=== PATIENT | male | born 1955 | race Caucasian/White ===

== ENCOUNTER 2017-11-09 10:53 | Emergency (ER) | payer OTHER ==
--- NOTE | 2017-11-09 11:25 | UC ---
Back Pain HPI - HPI Summary HPI Summary: This patient is a 62 year old M presenting to [facility] [place] accompanied by his s/p fall that occurred since 11-06-17. Pt was running when he fell injuring his right scapula. The patient rates the pain 8/10 in severity. Patient reports nausea, constipation, and right rib pain. Patient denies ABD pain, trouble eating/ drinking, neck pain, shoulder pain, urinary sx, bowel sx, and SOB. Pt is able to ambulate without pain. - History of Current Complaint Chief Complaint: UCBackPain Stated Complaint: BACK INJURY Time Seen by Provider: 11/09/17 11:12 Hx Obtained From: Patient Onset/Duration: Lasting Days, Still Present Timing: Constant Severity Initially: Moderate Severity Currently: Severe Pain Intensity: 8 Pain Scale Used: 0-10 Numeric Back Pain: Is Diffuse Aggravating Factor(s): Cough Associated Signs And Symptoms: Positive: Negative - ABD pain, trouble eating/ drinking, neck pain, shoulder pain, urinary sx, bowel sx, and SOB., Other - nausea, constipation, and right rib pain - Allergies/Home Medications Allergies/Adverse Reactions: Allergies Allergy/AdvReac Type Severity Reaction Status Date / Time No Known Allergies Allergy Verified 11/09/17 11:09 Home Medications: Home Medications Tamsulosin CAP* [Flomax CAP*] 0.4 mg PO DAILY 11/09/17 [History Confirmed ] PMH/Surg Hx/FS Hx/Imm Hx Cardiovascular History: Other Other Cardiovascular History: HLD GI/ History: Kidney Stones - Surgical History Surgical History: Yes Surgery Procedure, Year, and Place: bladder - Family History Known Family History: Positive: Cardiac Disease Negative: Respiratory Disease, Seizure Disorder - Social History Lives: With Family Alcohol Use: Occasionally Substance Use Type: None Smoking Status (MU): Never Smoked Tobacco Review of Systems Gastrointestinal: Nausea, Other - constipation Musculoskeletal: Other: - back pain All Other Systems Reviewed And Are Negative: Yes Physical Exam - Summary Physical Exam Summary: General: well-appearing, no pain distress Skin: warm, color reflects adequate perfusion, dry Head: normal Eyes: EOMI, LISBET ENT: normal Neck: supple, nontender Respiratory: CTA, breath sounds present Cardiovascular: RRR Abdomen: soft, nontender Bowel: present Musculoskeletal: TTP mid and lower thoracic spin. There is also tenderness in the right thoracic chest, right rib, and right scapula. Good ROM in bilateral UE s although the right is mildly limited secondary to pain. No flank pain, no ecchymosis Neurological: sensory/motor intact, A&O x3 Psychological: affect/mood appropriate Triage Information Reviewed: Yes Vital Signs: Initial Vital Signs Temp 98 F 11/09/17 11:03 Pulse 62 11/09/17 11:03 Resp 17 11/09/17 11:03 BP 105/60 11/09/17 11:03 Pulse Ox 100 11/09/17 11:03 Vital Signs Reviewed: Yes Diagnostics - Radiology CXR/Rib Xray Radiology Interpretation Completed By: Radiologist - There is suggestion of a fracture of the right ninth rib. Dr. Cortez has reviewed this report. Scapula Xray Radiology Interpretation Completed By: Radiologist - Unremarkable scapula. Dr. Cortez has reviewed this report. T spine Xray Radiology Interpretation Completed By: Radiologist - Osteopenia without fracture. Dr. Cortez has reviewed this report. Back Pain Course/Dx - Course Course Of Treatment: F/U PMD; RECHECK SOONER IF WORSE. - Differential Dx/Diagnosis Provider Diagnoses: RIGHT 9TH RIB FRACTURE Discharge - Sign-Out/Discharge Documenting (check all that apply): Patient Departure - Discharge Plan Condition: Stable Disposition: HOME Prescriptions: Cyclobenzaprine TAB* [Flexeril 10 MG TAB*] 10 mg PO TID PRN #20 tab PRN Reason: Pain Diclofenac Sodium 75 mg PO BID PRN #20 tablet. PRViktoriya Reason: Pain Patient Education Materials: Rib Fracture (ED) Referrals: [facility] [Outside] Additional Instructions: FOLLOW UP WITH YOUR DOCTOR. GET RECHECKED FOR ANY WORSENING OF YOUR CONDITION; PAIN, SHORTNESS OF BREATH, FEVER, YOU FEEL ILL OR QUESTIONS OR CONCERNS. - Billing Disposition and Condition Condition: STABLE Disposition: Home
--- NOTE | 2017-11-09 12:00 | RAD ---
Indication: Right shoulder pain. 2 views of the right scapula demonstrates no fracture of the scapula. Coracoid process is unremarkable. IMPRESSION: Unremarkable scapula.
--- NOTE | 2017-11-09 12:02 | RAD ---
Indication: Right rib injury. 3 views of the right ribs are reviewed. There is suggestion of a minimally displaced fracture of the right ninth rib posteriorly. Diffuse osteopenia is noted. No pneumothorax is noted. IMPRESSION: There is suggestion of a fracture of the right ninth rib.
--- NOTE | 2017-11-09 12:05 | RAD ---
Indication: Back pain. 2 views of the thoracic spine demonstrates osteopenia. There is no definite fracture identified. Disc spaces all well-preserved. IMPRESSION: Osteopenia without fracture.
== END 2017-11-09 12:50 | disposition home or self-care (01) ==
LOC: UCEAST 10:53
DX: S22.31XA Fracture of one rib, right side, initial encounter for closed fracture (principal); R11.0 Nausea; K59.00 Constipation, unspecified; M54.89 Other dorsalgia; W19.XXXA Unspecified fall, initial encounter; Y93.02 Activity, running; Y92.9 Unspecified place or not applicable
CPT/HCPCS: 72070; 99202; G0463